=== PATIENT | female | born 1955 | race Two or more races ===

== ENCOUNTER → 2024-11-05 | Emergency (ER) | payer OTHER ==
[~2024-11-05] VITALS: Ht 170.2 cm; Wt 72.6 kg
[~2024-11-05] MED LIST: CHILDREN'S ASPI81 MG PO; GLIPIZIDE ER2.5 MG PO; LEVO-T100 MCG PO; LIPITOR40 MG PO; METFORMIN HCL500 M3 PO; TENORMIN50 M1 PO; ZESTRIL20 MG PO
[2024-11-05 18:33] LABS: HEMATOCRIT 38.4 % (36.0-45.00); HEMOGLOBIN 12.9 g/dL (12.0-15.00); MEAN CELL VOLUME 88.3 fL (80.00-100.00); MEAN CORPUSCULAR HEMOGLOBIN 29.7 pg (27.00-32.0); MEAN CORPUSCULAR HGB CONC 33.7 g/dl (32.0-36.0); PLATELET COUNT 239 K/uL (150-450); RED BLOOD COUNT 4.35 M/uL (4.00-6.00); RED CELL DISTRIBUTION WIDTH 13.8 % (11.5-14.5)
== END | disposition home or self-care (01) ==
LOC: ER 16:58
PROVIDERS: General Practice
DX: R59.1 Generalized enlarged lymph nodes (principal); Z88.6 Allergy status to analgesic agent